=== PATIENT | male | born 1975 | race Hispanic/Latino ===

== ENCOUNTER 2022-11-14 20:42 | Emergency (ER) | payer BC ==
[~2022-11-14] VITALS: Ht 167.6 cm; Wt 90.7 kg
[2022-11-14 22:57] LABS: INFLUENZA B NAA NEGATIVE (NEGATIVE); RESPIRATORY SYNCYTIAL VIR NAA NEGATIVE (NEGATIVE)
[2022-11-14 22:59] LABS: HEMOGLOBIN 14.3 g/dL (12.0-18.0); MCHC 33.3 g/dl (30-36); MCV 90.2 fl (81-99); PLATELET COUNT 373 K/uL (140-440); RBC 4.77 M/ul (4.3-5.7); RDW 13.3 (10.5-15.0)
[2022-11-14 23:15] LABS: ALBUMIN 3.8 g/dL (3.4-5.0); ANION GAP 14.3 (7-21); BILIRUBIN, TOTAL 0.3 ng/dL (0.2-1.0); BUN/CREATININE RATIO 15.73 (6.0-28.6); CALCIUM 8.9 mg/dL (8.5-10.1); CREATININE, SERUM 0.89 mg/dL (0.70-1.30); MAGNESIUM 1.8 mg/dL (1.8-2.4); POTASSIUM 3.3 mmol/L (3.5-5.1); PROTEIN, TOTAL 7.6 g/dL (6.4-8.2)
[2022-11-14 23:16] LABS: BANDS, MANUAL DIFF 6; EOSINOPHILS, MANUAL DIFF 1; LYMPHOCYTES, MANUAL DIFF 13; MONOCYTES, MANUAL DIFF 5; NEUTROPHILS, MANUAL DIFF 75
[2022-11-14 23:30] LABS: BILIRUBIN, URINE NEGATIVE (negative); BLOOD/HGB, URINE SMALL (Negative); KETONE, URINE NEGATIVE (Negative); LEUK ESTERASE, URINE NEGATIVE (negative); NITRITE, URINE NEGATIVE (negative); PH, URINE 6.5 (5-7)
[2022-11-14 23:35] LABS: EPITHELIAL CELLS, URINE SQUAMOUS 1+ /lpf (0-1+)
[2022-11-14 23:36] LABS: BACTERIA, URINE RARE /hpf (negative); CASTS, URINE NONE SEEN \\lpf; CRYSTALS, URINE NONE SEEN (0-1+); REFLEX CULTURE, URINE No (No)
[2022-11-15 02:10] LABS: PROTEIN, CSF 38 mg/dL (15-45)
[2022-11-15 03:28] LABS: CLARITY, CEREBROSPINAL FLUID CLEAR; COLOR, CEREBROSPINAL FLUID COLORLESS; RBC, CEREBROSPINAL FLUID 14; WBC, CEREBROSPINAL FLUID 4
[2022-11-15] MEDS ORDERED: ONDANSETRON ODT8 MG PO (03:58)
[2022-11-15 04:37] VITALS: BP 162/94
== END 2022-11-15 04:36 | disposition home or self-care (01) ==
LOC: ED 20:42
PROVIDERS: Emergency Medicine
DX: A08.4 Viral intestinal infection, unspecified (principal); Z20.822 Contact with and (suspected) exposure to COVID-19
CPT/HCPCS: 36415; 62270; 70450; 74177; 80053; 81001; 82947; 83735; 84157; 85025; 87502; 89051; 99284-25; A9270; C9803; J1170; J2405; J2765; J7030; J7040; Q9967; U0002